=== PATIENT | female | born 1995 | race Asian ===

== ENCOUNTER 2021-03-30 23:41 | Emergency (ER) | payer MEDICAID ==
[~2021-03-30] VITALS: Ht 157.5 cm; Wt 71.9 kg
[2021-03-31] MEDS ORDERED: ACETAMINOPHEN 325MG TABLET PO ONE (02:30)
[2021-03-31 02:54] LABS: BASOPHILS % 0.5 % (0.0-2.0); EOSINOPHILS % 0.3 % (0.0-5.0); HEMATOCRIT. 35.3 % (36.0-48.0); HEMOGLOBIN. 11.5 g/dL (12.0-16.0); LYMPHOCYTES % 18.3 % (20.0-50.0); MEAN CORPUSCULAR HEMOGLOBIN 20.3 pg (28.0-32.0); MEAN CORPUSCULAR VOLUME 62.5 fL (81.0-99.0); MONOCYTES % 6.4 % (2.0-8.0); NEUTROPHILS % 74.5 % (40.0-76.0); RED BLOOD CELL COUNT 5.66 mill/uL (4.2-5.4); RED CELL DISTRIBUTION WIDTH 17.8 % (11.6-14.6)
[2021-03-31 03:02] LABS: CHLORIDE 107 mEq/L (98-107)
[2021-03-31 03:03] LABS: PROTHROMBIN TIME 11.2 sec (9.6-11.0)
[2021-03-31 03:36] LABS: B-HCG QUANTITATIVE 36712 mIU/mL (<3)
[2021-03-31 03:42] LABS: CLARITY URINE CLOUDY (CLEAR); COLOR URINE YELLOW (YELLOW); KETONES URINE NEGATIVE (NEGATIVE); LEUKOCYTE ESTERASE URINE NEGATIVE (NEGATIVE); NITRITE URINE NEGATIVE (NEGATIVE); OCCULT BLOOD URINE NEGATIVE (NEGATIVE); PH URINE 7.5 (4.5-8.0); PROTEIN URINE NEGATIVE (NEGATIVE); SPECIFIC GRAVITY URINE 1.016 (1.005-1.030); UROBILINOGEN URINE 0.2 E.U./dL (0.2-1.0)
[2021-03-31 06:55] VITALS: BP 109/59
[2021-03-31 07:32] LABS: PLATELET 228 x1000/uL (130-400)
[2021-03-31 07:33] LABS: MEAN PLATELET VOLUME 10.4 fl (7.4-10.4); PLATELET ESTIMATE NORMAL
== END 2021-03-31 07:00 | disposition home or self-care (01) ==
LOC: ER 23:41
DX: O46.91 Antepartum hemorrhage, unspecified, first trimester (principal); Z3A.12 12 weeks gestation of pregnancy
CPT/HCPCS: 36415; 76801; 80053; 81003; 81025; 84702; 85025; 86850; 86900; 87210; 99284